=== PATIENT | male | born 2000 | race Caucasian/White ===

== ENCOUNTER → 2024-03-09 | Outpatient (CLI) | payer OTHER | LOC: M RAD 14:35 | PROVIDERS: ATTEND Otolaryngology | DX: R04.0 Epistaxis (principal) ==

== ENCOUNTER 2024-04-22 07:56 | Day surgery (SDC) | payer OTHER ==
[~2024-04-22] VITALS: Ht 180.3 cm; Wt 86.2 kg
[2024-04-22] MEDS: NS 1,000 ML IV SCH (08:47)
[2024-04-22] MEDS ORDERED: fentaNYL 100 MCG/2 ML INJECTION As Ordered ONE (10:21)
[2024-04-22] MEDS ORDERED: propofoL 200 MG/20 ML VIAL As Ordered ONE (10:21)
[2024-04-22] MEDS ORDERED: ROCURONIUM BROMIDE 50MG/5ML VIAL As Ordered ONE (10:21)
[2024-04-22] MEDS ORDERED: LIDOCAINE 2% 100MG/5ML SDV (FOR ANES.) As Ordered ONE (10:21)
[2024-04-22] MEDS ORDERED: MIDAZOLAM INJ 2MG/2ML VIAL As Ordered ONE (10:21)
[2024-04-22] MEDS: BACITRACIN OINTMENT 30GM TUBE As Ordered ONE (10:40)
[2024-04-22] MEDS ORDERED: ONDANSETRON 4MG 2ML VIAL As Ordered ONE (11:06)
[2024-04-22] MEDS ORDERED: SUGAMMADEX SODIUM 500 MG/5 ML VIAL (BRIDION) As Ordered ONE (11:09)
[2024-04-22] MEDS ORDERED: ESMOLOL INJ 100MG/10ML VIAL As Ordered ONE (11:17)
[2024-04-22] MEDS: METHYLENE BLUE 0.5% (5MG/ML) 10 ML AMP (PROVAYBLUE) As Ordered ONE (11:22)
[2024-04-22] MEDS: EPINEPHrine 1MG/ML INJ 30ML MD-VIAL As Ordered ONE (11:22)
[2024-04-22] MEDS ORDERED: fentaNYL 100 MCG/2 ML INJECTION IV PRN (11:50)
[2024-04-22] MEDS ORDERED: NS 1,000 ML IV SCH (11:50)
[2024-04-22] MEDS ORDERED: HYDROMORPHONE HCL 0.5 MG/ 0.5 ML SYRINGE IV PRN (11:50)
[2024-04-22] MEDS ORDERED: ONDANSETRON 4MG 2ML VIAL IV PRN (11:50)
[2024-04-22] MEDS: oxyCODONE 5MG TAB PO PRN (12:29)
[2024-04-22 12:50] VITALS: BP 157/94; TEMP 98.1; O2SAT 100
== END 2024-04-22 13:06 | disposition home or self-care (01) ==
LOC: M SDC 07:56 → EDUNIT# 09:00 → M SDC 10:51
PROVIDERS: ATTEND Otolaryngology
DX: R04.0 Epistaxis (principal); J34.89 Other specified disorders of nose and nasal sinuses; Z88.1 Allergy status to other antibiotic agents
CPT/HCPCS: 31238; A6024; J0171; J1100; J1805; J2250; J2405; J3010; Q9968